=== PATIENT | female | born 1965 | race American Indian/Alaskan Native ===

== ENCOUNTER 2017-06-22 06:58 | Emergency (ER) | payer OTHER ==
[2017-06-22 06:59] VITALS: BMI 24.4
[2017-06-22 07:17] VITALS: TEMP 99.1
[2017-06-22 07:29] VITALS: BP 130/89; RESP 16; O2SAT 100
[2017-06-22] MEDS ORDERED: Promethazine/Cod 6.25mg-10mg/5ml Syr UD PO STA (07:45)
--- NOTE | 2017-06-22 07:52 | ED PDOC ---
HPI: General Adult Time Seen by Provider: 06/22/17 07:14 Chief Complaint (Nursing): Flu-like Symptoms Chief Complaint (Provider): Flu-like Symptoms History Per: Patient History/Exam Limitations: no limitations Onset/Duration Of Symptoms: Days (x 3) Current Symptoms Are (Timing): Still Present Additional Complaint(s): Roxann is a 51 year old with a past medical history of diabetes, hypertension, and high cholesterol, who presents to the emergency department complaining of cough, congestion and fever for 3 days. Patient reports having chills, body aches and 1 episode of vomiting.Tmax 101.9. Patient tolerates PO fluids and food intake. PMD: Codie Salgado Past Medical History Reviewed: Historical Data, Nursing Documentation, Vital Signs Vital Signs: Last Vital Signs Temp 99.1 F 06/22/17 07:26 Pulse 96 H 06/22/17 07:26 Resp 16 06/22/17 07:26 BP 130/89 06/22/17 07:26 Pulse Ox 100 06/22/17 08:19 - Medical History PMH: Diabetes, HTN, Hypercholesterolemia Denies: Chronic Kidney Disease - Surgical History Surgical History: No Surg Hx - Family History Family History: States: Unknown Family Hx - Home Medications Home Medications: Ambulatory Orders Medication Instructions Recorded Esomeprazole Magnesium [Nexium] 40 mg PO DAILY 06/09/14 GlipiZIDE SR [Glucotrol XL] 5 mg PO BID 06/09/14 Metformin Hydrochloride/Meagan 1 tab PO BID 06/09/14 [Janumet 1000 mg-50 mg] Polymyxin/Trimethoprim Sulfate 10 ml OD Q4 #1 bottle 11/30/14 [Polytrim Ophth Soln] Ibuprofen [Motrin] 600 mg PO Q6 PRN #30 tab 06/22/17 Promethazine/Codeine 5 ml PO Q4 PRN #1 bottle 06/22/17 [Phenergan/Codeine Oral Syrup] - Allergies Allergies/Adverse Reactions: Allergies Allergy/AdvReac Type Severity Reaction Status Date / Time No Known Allergies Allergy Verified 06/22/17 07:26 Review of Systems ROS Statement: Except As Marked, All Systems Reviewed And Found Negative Constitutional: Positive for: Chills, Other (Body Aches) ENT: Positive for: Nose Congestion Respiratory: Positive for: Cough Gastrointestinal: Positive for: Vomiting Physical Exam - Reviewed Nursing Documentation Reviewed: Yes Vital Signs Reviewed: Yes - Physical Exam Appears: Positive for: Non-toxic Head Exam: Positive for: ATRAUMATIC, NORMAL INSPECTION, NORMOCEPHALIC Skin: Positive for: Normal Color, Warm, Dry Eye Exam: Positive for: Normal appearance, EOMI, PERRL ENT: Positive for: Nasal Congestion Neck: Positive for: Normal Cardiovascular/Chest: Positive for: Regular Rate, Rhythm Respiratory: Positive for: Normal Breath Sounds. Negative for: Respiratory Distress Back: Positive for: Normal Inspection Extremity: Positive for: Normal ROM. Negative for: Deformity Neurologic/Psych: Positive for: Alert, Oriented (x 3). Negative for: Motor/ Sensory Deficits - ECG O2 Sat by Pulse Oximetry: 100 (RA) Pulse Ox Interpretation: Normal Medical Decision Making Medical Decision Making: Time: 07:44 Impression: Influenza-like Illness Plan: - Motrin Tab 600 mg PO STAT - Phenergan/Codeine Oral Syrup 5 ml PO Q6 STA - Glucose, Blood, POC Upon provider evaluation patient is medically stable, and requires no further treatment in the ED at this time. Patient will be discharged with Rx for Motrin Tab and Phenergan/Codeine Oral Syrup. Explained to patient to be well-hydrated, take medications as needed and follow up with PCP. There is agreement to discharge plan. Return if symptoms persist or worsen. Scribe Attestation: Documented by Doug Escoto, acting as a scribe for Luis Jose MD. Provider Scribe Attestation: All medical record entries made by the Scribe were at my direction and personally dictated by me. I have reviewed the chart and agree that the record accurately reflects my personal performance of the history, physical exam, medical decision making, and the department course for this patient. I have also personally directed, reviewed, and agree with the discharge instructions and disposition. Disposition - Clinical Impression Clinical Impression: Influenza-like symptoms - Patient ED Disposition Is Patient to be Admitted: No - Disposition Referrals: Codie Salgado MD [Primary Care Provider] - Disposition Time: 07:44 Condition: GOOD Additional Instructions: Ms Rose, thank you for letting us take care of you today. Your provider was Dr. Jose. You were treated for Viral Syndrome, Influenza Like Symptoms.. The emergency medical care you received today was directed at your acute symptoms. If you were prescribed any medication, please fill it and take as directed. It may take several days for your symptoms to resolve. Return to the Emergency Department if your symptoms worsen, do not improve, or if you have any other problems. Please contact your doctor or call one of the physicians/clinics you have been referred to that are listed on the Patient Visit Information form that is included in your discharge packet. Bring any paperwork you were given at discharge with you along with any medications you are taking to your follow up visit. Our treatment cannot replace ongoing medical care by a primary care provider (PCP) outside of the emergency department. Thank you for allowing the [facility] team to be part of your care today. If you had an X-Ray or CT scan: A Radiologist will review the ED reading if any change in treatment is needed we will contact you. If you had a blood, urine, or wound culture: It will take several days for the results, if any change in treatment is needed we will contact you. If you had an STI test: It will take 48 hours for the results. Please call after 1 week if you have not heard back. Prescriptions: Ibuprofen [Motrin] 600 mg PO Q6 PRN #30 tab PRN Reason: Pain, Moderate (4-7) Promethazine/Codeine [Phenergan/Codeine Oral Syrup] 5 ml PO Q4 PRN #1 bottle PRN Reason: Cough Instructions: Influenza (ED) Forms: [employer] ([place]), [facility] ED School/Work Excuse
[2017-06-22] MEDS ORDERED: Promethazine/Cod 6.25mg-10mg/5ml Syr UD ONE (08:11)
[2017-06-22 08:24] VITALS: PULSE 92
== END 2017-06-22 08:24 | disposition home or self-care (01) ==
LOC: H.ER 06:58
DX: J11.1 Influenza due to unidentified influenza virus with other respiratory manifestations (principal); E11.9 Type 2 diabetes mellitus without complications; Z79.84 Long term (current) use of oral hypoglycemic drugs; E78.00 Pure hypercholesterolemia, unspecified; I10 Essential (primary) hypertension

== ENCOUNTER 2018-04-02 07:14 | Day surgery (SDC) | payer OTHER ==
[2018-01-12 09:04] VITALS: BMI 25.4
[2018-04-02] MEDS ORDERED: Lactated Ringer's 500 ML IV ONE (07:42)
[2018-04-02] MEDS ORDERED: Sodium Chloride 0.9% 250 ML IV ONE (07:42)
[2018-04-02 07:55] VITALS: O2SAT 100
[2018-04-02] MEDS ORDERED: Propofol 10 mg/ml Inj (20 ML) ONE (08:05)
[2018-04-02 10:10] VITALS: TEMP 97
[2018-04-02 10:40] VITALS: BP 100/57; PULSE 79; RESP 20
== END 2018-04-02 12:12 | disposition home or self-care (01) ==
LOC: H.ENDO 07:14
PROVIDERS: ATTEND Internal Medicine Gastroenterology
DX: Z12.11 Encounter for screening for malignant neoplasm of colon (principal); K57.30 Diverticulosis of large intestine without perforation or abscess without bleeding; K64.1 Second degree hemorrhoids
CPT/HCPCS: 45378; J2001; J2704; J7030